=== PATIENT | female | born 1955 | race Two or more races ===

== ENCOUNTER → 2018-04-10 | Emergency (ER) | payer OTHER ==
[~2018-04-10] VITALS: Ht 162.6 cm; Wt 48.5 kg
[~2018-04-10] MED LIST: NORVASC2.5 MG; XANAX1 MG
== END | disposition left against medical advice (07) ==
LOC: ER 23:45
DX: Z53.20 Procedure and treatment not carried out because of patient's decision for unspecified reasons (principal)